=== PATIENT | male | born 1995 | race Caucasian/White ===

== ENCOUNTER 2016-06-09 16:15 | Emergency (ER) | payer BC, OTHER ==
[~2016-06-09] VITALS: Ht 185.4 cm; Wt 76.0 kg
[2016-06-09 16:27] VITALS: TEMP 37.2; O2SAT 95; Ht 185.4 cm; Wt 76.0 kg
[2016-06-09 18:19] LABS: BUN/CREATININE RATIO 9.2 (10-20); CALCIUM 8.8 mg/dl (8.5-10.1); CREATININE 1.1 mg/dl (0.60-1.40); POTASSIUM 4.2 mmol/L (3.5-5.1)
[2016-06-09 18:46] VITALS: BP 172/73; PULSE 104; O2SAT 98
--- NOTE | 2016-06-09 18:55 | EMERGENCY ROOM VISIT NOTE ---
ED Visit Note First contact with patient: 16:18 CHIEF COMPLAINT: Altered mental status from Alcohol overdose HISTORY OF PRESENT ILLNESS: This 21-year-old male patient presents to the emergency department via ambulance for evaluation of altered mental status, presumably from alcohol intoxication. The patient was drinking alcohol on [place] near [facility]. He was found to be stumbling on the sidewalk by police. The patient had a breathalyzer of greater than 300, and he had difficulty explaining where he was going. Because of the concern the patient is now here for further evaluation. The patient does admit to drinking alcohol tonight. He denies drug or substance abuse otherwise. He denies pain or injury. No chronic medical disease. REVIEW OF SYSTEMS: Review of systems was somewhat limited secondary to patient' s presumed alcohol intoxication status. Review of systems was performed to the best of our ability and reperformed as the patient began to sober up. All other systems were reviewed and are negative. ALLERGIES: See EMR MEDICATIONS: See EMR PMH: No chronic medical disease SOCIAL HISTORY: Student who lives locally PHYSICAL EXAM VITALS: Vitals are noted on the nurse's note and reviewed by myself. Vital signs stable. GENERAL: White male, who is in no acute distress and resting comfortably. Patient is visibly altered and smells of alcohol. HEAD: Normocephalic atraumatic. EARS: External ear normal. External auditory canals clear, tympanic membranes pearly cl[place] without erythema or effusion bilaterally. EYES: Pupils equal round and reactive to light and accommodation. Conjunctivae without injection, sclerae without icterus. Extraocular movements intact. NOSE: Patent, turbinates without inflammation or discharge. MOUTH: Mucous membranes moist. Tonsils are not enlarged. Pharynx without erythema, blood, vomitus, or exudate. Uvula midline. Airway patent. NECK: Supple without nuchal rigidity. No lymphadenopathy. Cervical spine is nontender. HEART: Regular rate and rhythm without murmurs gallops or rubs. LUNGS: Clear to auscultation bilaterally without wheezes, rales or rhonchi. No retractions or accessory muscle use. ABDOMEN: Positive normal bowel sounds x 4. Soft, nontender, without masses or organomegaly. No guarding or rebound tenderness. MUSCULOSKELETAL: No muscle atrophy, erythema, or edema noted. Gross motor function intact to all extremities. NEURO: Patient was alert to person but not place or time. They appear with altered mental status. SKIN: The skin was without rashes, erythema, edema, or bruising. No Tenting of the skin. EMERGENCY DEPARTMENT COURSE: Physical exam and history was performed. Nursing notes and EMR were reviewed. The patient appears to be altered on my examination. I suspect this is from an alcohol overdose. Conservative care measures and aspiration precautions were instituted. The patient was placed on school lunch monitor and watched during the patient's stay. The patient was placed in a prone position. Blood work was obtained and was reviewed. The patient's blood alcohol level was 292. This appears to be the primary cause of the altered status. Patient was reevaluated multiple times throughout the course of their emergency department stay. Over time the patient did sober up and was able to talk, walk , and drink fluids without difficulty. The patient was felt stable for discharge home. The patient was given alcohol intoxication handouts. The patient was discharged home in stable condition with a sober female friend. Differential diagnosis: Etiologies such as alcohol intoxication, metabolic, infection, hypoglycemia, electrolyte abnormalities, cardiac sources, intracerebral event, toxicologic, neurologic, as well as others were entertained. Current/Historical Medications No Active Prescriptions or Reported Meds Allergies Coded Allergies: No Known Allergies (Unverified , 06/09/16) Vital Signs Date Time Temp Pulse Resp B/P Pulse Ox O2 Delivery O2 Flow Rate FiO2 06/09/16 18:46 104 18 172/73 98 06/09/16 16:42 147/76 06/09/16 16:34 114 06/09/16 16:27 37.2 116 22 137/76 98 Room Air 06/09/16 16:27 95 Room Air 06/09/16 16:22 137/89 Laboratory Results 06/09/16 17:53 Test 06/09/16 17:53 Anion Gap 9.0 mmol/L (3-11) Est Creatinine Clear Calc Drug Dose 113.2 ml/min Estimated GFR () 109.9 Estimated GFR (Non- 94.8 BUN/Creatinine Ratio 9.2 (10-20) Calcium Level 8.8 mg/dl (8.5-10.1) Ethyl Alcohol mg/dL 292.0 mg/dl (0-3) Departure Information Prescriptions No Active Prescriptions or Reported Meds Referrals No Doctor, Assigned (PCP) Patient Instructions My [facility]
== END 2016-06-09 18:48 | disposition home or self-care (01) ==
LOC: EDBD 16:15 → C.EDA 16:16
DX: T51.0X1A Toxic effect of ethanol, accidental (unintentional), initial encounter (principal); F10.129 Alcohol abuse with intoxication, unspecified; Y90.8 Blood alcohol level of 240 mg/100 ml or more